=== PATIENT | female | born 1950 | race Caucasian/White ===

== ENCOUNTER 2020-08-23 14:40 | Emergency (ER) | payer OTHER, MEDICARE, SELFPAY ==
[2020-08-23] VITALS (38 sets, daily range): BP systolic 98–146; BP diastolic 47–88; PULSE 70–110; RESP 12–25; TEMP 36.8; O2SAT 93–100
--- NOTE | ~2020-08-23 | CT_ITS ---
EXAMINATION: CT LE LT wo con DATE: 08/23/2020 17:25 INDICATION: Left knee pain TECHNIQUE: Computed tomography (CT) of the left lower extremity was performed without intravenous con trast. The dose-length product was 2014.48 mGy-cm. Automated exposure control and iterative reconstru ction technique were employed. COMPARISON: None FINDINGS: There is a nondisplaced fracture of the left lateral tibial plateau, best seen on axial simona ges. There is a large amount of prepatellar soft tissue swelling. There is abnormal soft tissue/fluid in the anterior soft tissues at the level of the knee, likely hematoma. Moderate osteoarthritis of t he left hip. There are extensive postsurgical changes in the foot and ankle. There is moderate osteoa rthritis of the left knee. IMPRESSION: 1. Nondisplaced left lateral tibial plateau fracture. Irregular soft tissue/fluid anterior to the lef t knee extending inferiorly, likely hematoma. Reviewed, dictated and finalized at location A. IMPRESSION: 1. Nondisplaced left lateral tibial plateau fracture. Irregular soft tissue/flu id anterior to the left knee extending inferiorly, likely hematoma.
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
--- NOTE | 2020-08-23 15:22 | PC.NURSE ---
patient up to [facility] shortly after arrival to ED. patient became dizzy and lethargic. near syncopal episode. no changes on monitor. BP stable. this RN and Elias RN at bedside. symptoms lasted approximately 3-4 minuts. placed gait belt on patient and assist x 3 back to bed. denies previous hx of syncope or near syncope.
--- NOTE | 2020-08-23 15:30 | PC.NURSE ---
patient back on stretcher. on monitor worker. SL inserted. labs drawn. patient back to baseline at this time. aware.
[2020-08-23 16:01] LABS: Basophils Absolute Auto 0.1 K/mm3 (0.0-0.1); Basophils Percent Auto 0.6 % (0.2-1.2); Eosinophils Absolute Auto 0.2 K/mm3 (0-0.3); Eosinophils Percent Auto 1.4 % (0-4.4); Immature Granulocyte Absolute 0.06 K/mm3 (0.00-0.031); Immature Granulocyte Percent A 0.5 % (0-0.5); Lymphocytes Absolute Auto 2.55 K/mm3 (0.9-3.2); Lymphocytes Percent Auto 21.1 % (18.3-44.2); Mean Corpuscular HGB Conc 30.3 g/dl (32-36); Mean Corpuscular Hemoglobin 29.1 pg (26-34); Mean Corpuscular Volume 95.9 fl (80-100); Mean Platelet Volume 10.5 fl (7.4-10.4); Monocytes Percent Auto 8.5 % (2.6-8.5); Neutrophils Absolute Auto 8.2 K/mm3 (1.3-6.7); Neutrophils Percent Auto 67.9 % (45.5-73.1); Platelet Count Result 301 k/mm3 (150-375); Red Blood Count 3.44 M/mm3 (4.2-5.4); Red Cell Distribution Width 13.8 % (11.5-14.5); White Blood Count 12.1 K/mm3 (4.5-10.0)
[2020-08-23 16:10] LABS: INR 1.2; Prothrombin Time 14.8 Seconds (11.1-14.7)
[2020-08-23 16:11] LABS: Partial Thromboplastin Time 28.6 SECONDS (22.3-36.8)
[2020-08-23 16:13] LABS: Alanine Aminotransferase 44 U/L (4-35); Albumin Level 3.6 g/dL (3.5-5.1); Alkaline Phosphatase 128 U/L (38-126); Anion Gap 9 mmol/L (8-16); Aspartate Amino Transferase 74 U/L (14-36); Bilirubin,Total 0.3 mg/dL (0.2-1.3); Blood Urea Nitrogen 22 mg/dL (7-17); Calcium 8.2 mg/dL (8.4-10.2); Carbon Dioxide 23 mmol/L (22-30); Chloride 108 mmol/L (98-107); Estimated CRCL calculation 69 ml/min; Estimated Glomerular Filt Rate 55; Glucose 169 mg/dL (65-105); Potassium 3.2 mmol/L (3.4-5.0); Sodium 140 mmol/L (137-145)
[2020-08-23] MEDS: MORPHINE SULFATE (*CRX) 2 MG/ML INJ IV PUSH (16:14)
[2020-08-23] MEDS: ONDANSETRON INJ 4 MG/2 ML VIAL IV PUSH (16:14)
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
--- NOTE | 2020-08-23 16:30 | PC.NURSE ---
patient on stretcher. side rails up x 2. on satellite project site monitor. pain meds and zofran given as ordered. repositioned in bed. denies any other needs at this time. sister in room. call light in reach.
--- NOTE | 2020-08-23 18:55 | PC.NURSE ---
attempted to get patient up to [facility] to collect UA. plan to discharge patient home at this time. patient became diaphoretic and dizzy again. no LOC. patient laid back down and repositioned. provider notified.
--- NOTE | 2020-08-23 19:05 | PC.NURSE ---
attempted to straight cath patient. unable to complete by this RN due to difficult anatomy. Elias RN to bedside to attempt with new catheter kit. unable to complete. patient cleaned and placed on bedpan. c/o dizziness again with slight movement.
[2020-08-23] MEDS: POTASSIUM CHLORIDE 20 MEQ TABLET 40 MEQ PO (19:25)
--- NOTE | 2020-08-23 20:13 | ECG_ITS ---
Measurements Intervals [place] Rate: 70 P: 60 ID: 149 QRS: -8 QRSD: 115 T: 58 QT: 430 QTc: 464 Interpretive Statements SINUS RHYTHM INTRAVENTRICULAR CONDUCTION DELAY DELAYED PRECORDIAL R/S TRANSITION LEFT VENTRICULAR HYPERTROPHY WITH ST-T CHANGE BORDERLINE ECG Electronically Signed On 08-24-2020 6:59:57 CDT by Otto Kaiser D.O.
[2020-08-23] MEDS: SODIUM CHLORIDE 0.9% IV 1,000 ML 999 ML IV CONT (20:26)
[2020-08-23 20:33] LABS: Add Urine Microscopic? YES; Appearance Urine Turbid (Clear); Bacteria Urine 2+ /hpf; Bilirubin Urine Negative (Negative); Blood Urine 2+ (Negative); Color Urine Yellow (Yellow); Glucose Urine UA Negative (Negative); Ketones Urine Negative (Negative); Leukocyte Esterase Ur 3+ LEU/UL (Negative); Nitrate Urine Negative (Negative); Protein Urine 2+ mg/dL (Negative); Urobilinogen Urine Negative mg/dL (<2.0); WBC Urine >75 /hpf
[2020-08-23 20:34] LABS: Specific Grav Ur 1.043 (1.001-1.035)
--- NOTE | 2020-08-23 21:14 | PC.NURSE ---
EKG done at bedside. in room. patient wants pain meds. provider aware. sandwich tray given to patient and with soda.
[2020-08-23] MEDS: HYDROcodone/acetaminophen (*CRX) 5-325 MG TABLET 1 TAB PO (22:10)
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
--- NOTE | 2020-08-23 22:26 | PC.NURSE ---
resting on stretcher. at bedside. IV antibiotic completed. NS continues but slow due to patient movement. states she is worried about pain meds prior to ambulance ride. will discuss with .
--- NOTE | 2020-08-23 22:29 | PC.NURSE ---
Addendum entered by Francheska Severino RN 08/23/20 22:30: [phone] ext [phone] Original Note: Magui TAVARES needs update when patient leaves this ED or when we are aware that EMS is able to transport. return #[phone]
--- NOTE | 2020-08-23 22:32 | PC.NURSE ---
called [facility] and [facility] to trasfer patient to [facility] ed waiting on both to return calls on whether they can transfer or not
--- NOTE | 2020-08-23 22:48 | PC.NURSE ---
[facility] declined due to a shortage of rigs. called [facility] to touch base and they still have not recieved an email back from their clothing room supervisor
[2020-08-24] VITALS (12 sets, daily range): BP systolic 113–140; BP diastolic 35–88; PULSE 70–75; RESP 16–21; TEMP 36.8; O2SAT 93–99
--- NOTE | 2020-08-24 00:10 | PC.NURSE ---
Patient placed in hospital bed for comfort.
[2020-08-24] MEDS: MORPHINE SULFATE (*CRX) 2 MG/ML INJ IV PUSH ×2 (01:07→05:43)
--- NOTE | 2020-08-24 01:39 | PC.NURSE ---
contacted [facility] about transferring patient. waiting on a call back. [facility] still has not called. when contacted at [phone] i was told that they would call me when they got the email from their show design supervisor and they will call me when they here something
--- NOTE | 2020-08-24 02:04 | PC.NURSE ---
Addendum entered by Becky Cunningham 08/24/20 02:05: contacted [facility] and cancelled request for transportation Original Note: [facility] accepted transfer eta will be 0800
[2020-08-24] MEDS: HYDROcodone/acetaminophen (*CRX) 5-325 MG TABLET 1 TAB PO (02:23)
--- NOTE | 2020-08-24 06:34 | PC.NURSE ---
Patient placed on 2L via nasal cannula. Patient's O2 began to range from 86%-90% while sleeping. Patient on oxygen while sleeping.
--- NOTE | 2020-08-24 07:15 | PC.NURSE ---
Report received from ANUSHA Sanders, to continue care. Pt resting comfortably on stretcher. Denies needs at present.
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
== END 2020-08-24 08:51 | disposition short-term general hospital (02) ==
PROVIDERS: Emergency Medicine; Physician Assistant; Emergency Provider Emergency Medicine
DX: S82.145A Nondisplaced bicondylar fracture of left tibia, initial encounter for closed fracture (principal); S20.212A Contusion of left front wall of thorax, initial encounter; N39.0 Urinary tract infection, site not specified; E87.6 Hypokalemia; R55 Syncope and collapse; N13.30 Unspecified hydronephrosis; E11.9 Type 2 diabetes mellitus without complications; K21.9 Gastro-esophageal reflux disease without esophagitis; E78.5 Hyperlipidemia, unspecified; I10 Essential (primary) hypertension; Z86.711 Personal history of pulmonary embolism; Z79.01 Long term (current) use of anticoagulants; Z79.4 Long term (current) use of insulin; I45.9 Conduction disorder, unspecified; R94.31 Abnormal electrocardiogram [ECG] [EKG]
CPT/HCPCS: 36415; 71260; 73700; 74177; 80053; 81001; 85025; 85610; 85730; 87077; 87086; 87088; 87186; 93005; 96361; 96365; 96366; 96367; 96375; 96376; 99285; A9270; J0131; J0696; J2270; J2405; J7030; Q9967

== ENCOUNTER 2023-01-08 12:10 | Outpatient (CLI) | payer MEDICARE, SELFPAY ==
[2023-01-08 12:36] LABS: Basophils Absolute Auto 0.04 K/mm3 (0.00-0.10); Basophils Percent Auto 0.5 % (0.0-1.0); Eosinophils Absolute Auto 0.09 K/mm3 (0.02-0.50); Eosinophils Percent Auto 1.2 % (1.0-6.0); Hematocrit 37.6 % (35.0-42.0); Hemoglobin 11.5 g/dL (11.7-13.8); Immature Granulocyte Absolute 0.02 K/mm3 (0.00-0.00); Immature Granulocyte Percent A 0.3 % (0.0-0.0); Lymphocytes Absolute Auto 0.86 K/mm3 (1.10-4.50); Lymphocytes Percent Auto 11.5 % (18.0-42.0); Mean Corpuscular HGB Conc 30.6 g/dL (32.0-36.0); Mean Corpuscular Hemoglobin 29.3 pg (27.0-31.0); Mean Corpuscular Volume 95.9 fL (78.0-102.0); Mean Platelet Volume 10.3 fl (9.2-11.8); Monocytes Absolute Auto 0.79 K/mm3 (0.10-0.90); Monocytes Percent Auto 10.5 % (2.0-11.0); Neutrophils Absolute Auto 5.7 K/mm3 (1.7-7.2); Platelet Count Result 298 K/mm3 (150-420); Red Blood Count 3.92 M/mm3 (4.20-5.40); Red Cell Distribution Width 17.8 % (11.6-14.4); White Blood Count 7.5 K/mm3 (4.8-10.8)
[2023-01-08 12:59] LABS: Alanine Aminotransferase 67 U/L (14-59); Albumin Level 2.3 g/dL (3.4-5.0); Alkaline Phosphatase 282 U/L (46-116); Anion Gap 6 mmol/L (8-16); Aspartate Amino Transferase 121 U/L (15-37); Bilirubin,Total 1.1 mg/dL (0.00-1.00); Blood Urea Nitrogen 46 mg/dL (7-18); Calcium 8.8 mg/dL (8.5-10.1); Carbon Dioxide 33 mmol/L (21-32); Chloride 100 mmol/L (98-108); Estimated Glomerular Filt Rate 27; Glucose 102 mg/dL (70-99); Osmolality Calculated 299 mOsm/kg (285-295); Potassium 4.1 mmol/L (3.5-5.1); Sodium 139 mmol/L (136-145); Thyroid Stimulating Hormone 13.47 uIU/mL (0.36-3.74); Total Protein 9.2 g/dL (6.4-8.2)
[2023-01-08 13:08] VITALS: BP 153/68; PULSE 64; RESP 16; TEMP 36.4; O2SAT 98
[2023-01-08 13:14] VITALS: BMI 48.3
--- NOTE | 2023-01-08 14:25 | PC.NURSE ---
Patient here for cycle 1 chemo Keytruda infusion. Education given. All concerns answered. Labs reviewed and ok'd. IV Keytruda administered. SEE MAR. Tolerated well. Will return in 6 weeks February 19, 2023 for cycle 2. Safe exit of hospital in her motorized scooter escorted by friend.
[2023-01-14 05:47] LABS: Cortisol Random 15.7 mcg/dL (***)
== END 2023-01-08 12:11 | disposition home or self-care (01) ==
PROVIDERS: Visit Provider Internal Medicine Hematology & Oncology
DX: C67.9 Malignant neoplasm of bladder, unspecified (principal); R94.6 Abnormal results of thyroid function studies
CPT/HCPCS: 36415; 80053; 82533; 84443; 85025; 96413; J9271

== ENCOUNTER 2023-02-19 12:21 | Outpatient (CLI) | payer MEDICARE, SELFPAY ==
--- NOTE | 2023-02-19 12:25 | PC.NURSE ---
Pt to room 202 per wc with friend. A&Ox3. Has no complaints or concerns. Oriented to room, plan of care. Requests to remain up in wc. Call ayers in reach. Reminded to call with needs.
[2023-02-19 12:56] LABS: Basophils Absolute Auto 0.05 K/mm3 (0.00-0.10); Basophils Percent Auto 0.7 % (0.0-1.0); Eosinophils Absolute Auto 0.11 K/mm3 (0.02-0.50); Eosinophils Percent Auto 1.5 % (1.0-6.0); Hematocrit 37.6 % (35.0-42.0); Hemoglobin 11.9 g/dL (11.7-13.8); Immature Granulocyte Absolute 0.03 K/mm3 (0.00-0.00); Immature Granulocyte Percent A 0.4 % (0.0-0.0); Lymphocytes Absolute Auto 0.81 K/mm3 (1.10-4.50); Lymphocytes Percent Auto 10.9 % (18.0-42.0); Mean Corpuscular HGB Conc 31.6 g/dL (32.0-36.0); Mean Corpuscular Hemoglobin 30.7 pg (27.0-31.0); Mean Corpuscular Volume 97.2 fL (78.0-102.0); Mean Platelet Volume 10.2 fl (9.2-11.8); Monocytes Absolute Auto 0.75 K/mm3 (0.10-0.90); Monocytes Percent Auto 10.1 % (2.0-11.0); Neutrophils Absolute Auto 5.7 K/mm3 (1.7-7.2); Neutrophils Percent Auto 76.4 % (50.0-70.0); Platelet Count Result 296 K/mm3 (150-420); Red Blood Count 3.87 M/mm3 (4.20-5.40); Red Cell Distribution Width 15.1 % (11.6-14.4); White Blood Count 7.4 K/mm3 (4.8-10.8)
[2023-02-19 13:19] LABS: Alanine Aminotransferase 56 U/L (14-59); Albumin Level 2.1 g/dL (3.4-5.0); Alkaline Phosphatase 281 U/L (46-116); Anion Gap 7 mmol/L (8-16); Aspartate Amino Transferase 114 U/L (15-37); Bilirubin,Total 0.9 mg/dL (0.00-1.00); Blood Urea Nitrogen 69 mg/dL (7-18); Calcium 8.4 mg/dL (8.5-10.1); Carbon Dioxide 29 mmol/L (21-32); Chloride 97 mmol/L (98-108); Estimated Glomerular Filt Rate 13; Glucose 199 mg/dL (70-99); Osmolality Calculated 302 mOsm/kg (285-295); Potassium 4.5 mmol/L (3.5-5.1); Sodium 133 mmol/L (136-145); Total Protein 8.9 g/dL (6.4-8.2)
--- NOTE | 2023-02-19 13:20 | PC.NURSE ---
Labs resulted. Creatnine 3.36. Zahraa at Dr. Paniagua's office notified. Ordered to hold Keytruda for one week and administer 5ooml NS. Pt informed. Has no concerns.
[2023-02-19 13:50] VITALS: BMI 47.0
[2023-02-19] MEDS: SODIUM CHLORIDE 0.9% IV 500 ML IVPB (13:57)
[2023-02-19 13:59] VITALS: BP 130/58; PULSE 60; RESP 20; TEMP 36; O2SAT 95
--- NOTE | 2023-02-19 14:00 | PC.NURSE ---
Labs resulted. Creatnine 3.36. Zahraa at Dr
--- NOTE | 2023-02-19 14:38 | PC.NURSE ---
Zahraa from Dr. Paniagua's office called and stated Dr. Paniagua would like patient to go the the ED after bolus completed for a full work up and kidney ultrasound. Discussed with patient and she is in agreement.
--- NOTE | 2023-02-19 14:50 | PC.NURSE ---
Pt has changed her mind and does not want to go to the ED when bolus is infused. Dr. Paniagua's office notified. Pt to return for labs and possible Keytruda infusion next week.
--- NOTE | 2023-02-19 15:02 | PC.NURSE ---
NS bolus infused. Pt tolerated well. Has no concerns or complaints. Discharged to home per wc with friend.
[2023-02-25 03:50] LABS: Cortisol Random 15.9 mcg/dL (***)
== END 2023-02-19 12:22 | disposition home or self-care (01) ==
LOC: CHSTREATRM 12:27
PROVIDERS: Visit Provider Internal Medicine Hematology & Oncology
DX: C67.9 Malignant neoplasm of bladder, unspecified (principal); R79.89 Other specified abnormal findings of blood chemistry; R94.6 Abnormal results of thyroid function studies
CPT/HCPCS: 36415; 80053; 82533; 84443; 85025; 96360; J7040

== ENCOUNTER 2023-02-23 07:28 | Outpatient (CLI) | payer MEDICARE, SELFPAY ==
--- NOTE | ~2023-02-23 | US_ITS ---
Renal-Bladder ultrasound Clinical History: Elevated creatinine Technique: Real-time sonographic imaging of the kidneys and urinary bladder was performed. Findings: The right kidney measures 8.9 cm in length and the left kidney measures 11.6 cm. There is n o hydronephrosis or renal calculus identified. Renal cortical echogenicity is within normal limits. N o renal mass lesion is identified. The urinary bladder is collapsed, limiting evaluation. Impression: No hydronephrosis. Left kidney measures significantly larger than right, possibly due to limitations in imaging. Conside r asymmetric right renal atrophy. Collapsed urinary bladder limits evaluation. Reviewed, dictated and finalized at location . Impression: No hydronephrosis. Left kidney measures significantly larger than right, possibly due to limitatio ns in imaging. Consider asymmetric right renal atrophy. Collapsed urinary bladder limits evaluation.
== END 2023-02-23 07:29 | disposition home or self-care (01) ==
LOC: CHSIMG 07:31
PROVIDERS: Visit Provider Internal Medicine Hematology & Oncology
DX: R79.89 Other specified abnormal findings of blood chemistry (principal)
CPT/HCPCS: 76775

== ENCOUNTER 2023-02-26 13:13 | Outpatient (CLI) | payer MEDICARE, SELFPAY ==
[2023-02-26 13:18] VITALS: BMI 47.0
[2023-02-26 13:32] LABS: Basophils Absolute Auto 0.04 K/mm3 (0.00-0.10); Basophils Percent Auto 0.6 % (0.0-1.0); Eosinophils Absolute Auto 0.13 K/mm3 (0.02-0.50); Eosinophils Percent Auto 2.1 % (1.0-6.0); Hematocrit 36.4 % (35.0-42.0); Hemoglobin 11.6 g/dL (11.7-13.8); Immature Granulocyte Absolute 0.04 K/mm3 (0.00-0.00); Immature Granulocyte Percent A 0.6 % (0.0-0.0); Lymphocytes Absolute Auto 0.85 K/mm3 (1.10-4.50); Lymphocytes Percent Auto 13.8 % (18.0-42.0); Mean Corpuscular HGB Conc 31.9 g/dL (32.0-36.0); Mean Corpuscular Hemoglobin 30.9 pg (27.0-31.0); Mean Corpuscular Volume 97.1 fL (78.0-102.0); Mean Platelet Volume 10.5 fl (9.2-11.8); Monocytes Absolute Auto 0.77 K/mm3 (0.10-0.90); Monocytes Percent Auto 12.5 % (2.0-11.0); Neutrophils Absolute Auto 4.4 K/mm3 (1.7-7.2); Neutrophils Percent Auto 70.4 % (50.0-70.0); Platelet Count Result 268 K/mm3 (150-420); Red Blood Count 3.75 M/mm3 (4.20-5.40); White Blood Count 6.2 K/mm3 (4.8-10.8)
[2023-02-26 13:34] VITALS: BP 109/67; PULSE 88; RESP 16; TEMP 36.8; O2SAT 97
[2023-02-26 14:01] LABS: Alanine Aminotransferase 57 U/L (14-59); Albumin Level 2.2 g/dL (3.4-5.0); Alkaline Phosphatase 256 U/L (46-116); Anion Gap 10 mmol/L (8-16); Aspartate Amino Transferase 105 U/L (15-37); Bilirubin,Total 0.9 mg/dL (0.00-1.00); Blood Urea Nitrogen 63 mg/dL (7-18); Calcium 8.1 mg/dL (8.5-10.1); Carbon Dioxide 27 mmol/L (21-32); Chloride 99 mmol/L (98-108); Estimated CRCL calculation 22 ml/min; Estimated Glomerular Filt Rate 15; Glucose 227 mg/dL (70-99); Osmolality Calculated 307 mOsm/kg (285-295); Potassium 4.6 mmol/L (3.5-5.1); Sodium 136 mmol/L (136-145); Thyroid Stimulating Hormone 9.51 uIU/mL (0.36-3.74); Total Protein 8.1 g/dL (6.4-8.2)
--- NOTE | 2023-02-26 14:17 | PC.NURSE ---
Patient here for IV chemo Keytruda infusion. Labs drawn and reviewed. Creatinine 3.03. Dr. Paniagua notified. New orders received to hold chemo this week and repeat labs next week. Patient frustrated, but very understanding. Support given. Safe exit of hospital in [facility] along with sister.Will return Monday March 06, 2023 at 1230.
[2023-03-02 14:11] LABS: Cortisol Random 14.5 mcg/dL (***)
== END 2023-02-26 13:14 | disposition home or self-care (01) ==
LOC: CHSTREATRM 13:17
PROVIDERS: Visit Provider Internal Medicine Hematology & Oncology
DX: C67.9 Malignant neoplasm of bladder, unspecified (principal); R94.6 Abnormal results of thyroid function studies; R79.89 Other specified abnormal findings of blood chemistry
CPT/HCPCS: 36415; 80053; 82533; 84443; 85025

== ENCOUNTER 2023-03-06 12:15 | Outpatient (CLI) | payer MEDICARE, SELFPAY ==
[2023-03-06 12:30] LABS: Basophils Absolute Auto 0.05 K/mm3 (0.00-0.10); Basophils Percent Auto 0.7 % (0.0-1.0); Eosinophils Absolute Auto 0.14 K/mm3 (0.02-0.50); Eosinophils Percent Auto 2.1 % (1.0-6.0); Hematocrit 36.9 % (35.0-42.0); Hemoglobin 11.7 g/dL (11.7-13.8); Immature Granulocyte Absolute 0.01 K/mm3 (0.00-0.00); Immature Granulocyte Percent A 0.1 % (0.0-0.0); Lymphocytes Absolute Auto 0.93 K/mm3 (1.10-4.50); Lymphocytes Percent Auto 13.7 % (18.0-42.0); Mean Corpuscular HGB Conc 31.7 g/dL (32.0-36.0); Mean Corpuscular Hemoglobin 31.3 pg (27.0-31.0); Mean Corpuscular Volume 98.7 fL (78.0-102.0); Mean Platelet Volume 10.2 fl (9.2-11.8); Monocytes Absolute Auto 0.73 K/mm3 (0.10-0.90); Monocytes Percent Auto 10.8 % (2.0-11.0); Neutrophils Absolute Auto 4.9 K/mm3 (1.7-7.2); Neutrophils Percent Auto 72.6 % (50.0-70.0); Platelet Count Result 258 K/mm3 (150-420); Red Blood Count 3.74 M/mm3 (4.20-5.40); Red Cell Distribution Width 14.6 % (11.6-14.4); White Blood Count 6.8 K/mm3 (4.8-10.8)
[2023-03-06 12:57] LABS: Alanine Aminotransferase 41 U/L (14-59); Albumin Level 2.2 g/dL (3.4-5.0); Alkaline Phosphatase 261 U/L (46-116); Anion Gap 6 mmol/L (8-16); Aspartate Amino Transferase 88 U/L (15-37); Bilirubin,Total 0.9 mg/dL (0.00-1.00); Blood Urea Nitrogen 50 mg/dL (7-18); Calcium 8.8 mg/dL (8.5-10.1); Carbon Dioxide 29 mmol/L (21-32); Chloride 100 mmol/L (98-108); Estimated Glomerular Filt Rate 17; Glucose 171 mg/dL (70-99); Osmolality Calculated 297 mOsm/kg (285-295); Potassium 4.9 mmol/L (3.5-5.1); Sodium 135 mmol/L (136-145); Thyroid Stimulating Hormone 14.06 uIU/mL (0.36-3.74)
--- NOTE | 2023-03-06 13:50 | PC.NURSE ---
Patient here for Keytruda #2. Has not been able to get dose for last 2 weeks r/t ^ Creatinine level. Yet today Creatinine 2.76 - notified Dr. Paniagua. Per Dr. Paniagua unable to give today. Repeat blood work next week. Patient educated on today's event. DC per wc with sister.
[2023-03-11 13:58] LABS: Cortisol Random 14.6 mcg/dL (***)
== END 2023-03-06 12:16 | disposition home or self-care (01) ==
LOC: CHSTREATRM 12:16
PROVIDERS: Visit Provider Internal Medicine Hematology & Oncology
DX: C67.9 Malignant neoplasm of bladder, unspecified (principal); R79.89 Other specified abnormal findings of blood chemistry; R94.6 Abnormal results of thyroid function studies
CPT/HCPCS: 36415; 80053; 82533; 84443; 85025; J9271

== ENCOUNTER 2023-03-13 12:25 | Outpatient (CLI) | payer MEDICARE, SELFPAY ==
[2023-03-13 12:40] VITALS: BP 111/51; PULSE 78; RESP 14; TEMP 36.6; O2SAT 98
[2023-03-13 12:41] VITALS: BMI 46.9
--- NOTE | 2023-03-13 13:26 | PC.NURSE ---
Patient here for Natalie #2. Labs reviewed from 03/11/23 and ok'd for chemo. Education given. IV Chemo administered. SEE MAR Tolerated well. Will return 04/24/23 at 1230 for #3. Safe exit of hospital per motor scooter chair and sister.
== END 2023-03-13 12:26 | disposition home or self-care (01) ==
LOC: CHSTREATRM 12:28
PROVIDERS: Visit Provider Internal Medicine Hematology & Oncology
DX: Z51.11 Encounter for antineoplastic chemotherapy (principal); C67.9 Malignant neoplasm of bladder, unspecified
CPT/HCPCS: 96413; J9271

== ENCOUNTER 2023-04-24 11:59 | Outpatient (CLI) | payer MEDICARE, SELFPAY ==
[2023-04-24 12:06] VITALS: BMI 46.9
[2023-04-24 12:09] VITALS: BP 140/63; PULSE 64; RESP 14; TEMP 36.4; O2SAT 96
== END 2023-04-24 12:00 | disposition home or self-care (01) ==
PROVIDERS: PCP Internal Medicine Hematology & Oncology; Visit Provider Internal Medicine Hematology & Oncology
DX: Z51.11 Encounter for antineoplastic chemotherapy (principal); C67.9 Malignant neoplasm of bladder, unspecified
CPT/HCPCS: 96413; J9271

== ENCOUNTER 2023-06-05 11:50 | Outpatient (CLI) | payer MEDICARE, SELFPAY ==
[2023-06-05 12:02] VITALS: BMI 47.0
[2023-06-05 12:07] VITALS: BP 154/56; PULSE 72; RESP 16; TEMP 36.6; O2SAT 97
[2023-06-05 13:17] VITALS: BP 149/69; PULSE 72; RESP 16; O2SAT 98
--- NOTE | 2023-06-05 13:19 | PC.NURSE ---
Patient here for #4 Keytruda infusion. Labs done at [facility] on Thursday06/01/23. Reviewed and ok. Education given. No concerns. Has appt. Dr. Paniagua after this at the clinic. Keytruda administered. SEE MAR. Tolerated well. Safe exit of hospital per motorized chair and 2 sisters[address] Will see if Dr. Paniagua is going to give more chemo.
== END 2023-06-05 11:51 | disposition home or self-care (01) ==
PROVIDERS: Visit Provider Internal Medicine Hematology & Oncology
DX: Z51.11 Encounter for antineoplastic chemotherapy (principal); C67.9 Malignant neoplasm of bladder, unspecified
CPT/HCPCS: 96413; J9271

== ENCOUNTER 2023-08-06 09:47 | Outpatient (CLI) | payer MEDICARE, SELFPAY ==
[2023-08-06 10:15] VITALS: BP 139/55; PULSE 67; RESP 18; TEMP 35.7; O2SAT 93
[2023-08-06] MEDS: SODIUM CHLORIDE 0.9% IV 250 ML 10 ML IVPB (10:20)
[2023-08-06] MEDS: FAMOTIDINE 20 MG/2 ML VIAL IV PUSH (10:45)
[2023-08-06] MEDS: diphenhydrAMINE HCl INJ 50 MG/ML VIAL 25 MG IV PUSH (10:45)
[2023-08-06] MEDS: FOSAPREPITANT DIMEGLUMINE 150 MG in SODIUM CHLORIDE 0.9% IV 250 ML 750 MG IVPB (10:55)
[2023-08-06] MEDS: HEPARIN SODIUM LOCK FLUSH 500 UNITS/5 ML SYRINGE IV PUSH (11:57)
--- NOTE | 2023-08-06 12:24 | PC.NURSE ---
Patient here for Cycle 1 day 1 of Gemcitabine/Carboplantin chemo. Education and cycle calendar given to patient. All Concerns answered. Labs were done yesterday at [facility]. Reveiwed and ok'd. Chemo regimen administered. SEE MAR. Left message with Dr. Paniagua's office abut ordering anti-nausea medication for hme.Tolerated Well. Safe exit of hospital in her motorized scooter with friend. Will return 08/13/23 at 1000 for cycle 1 day 8.
[2023-08-06 12:25] VITALS: BP 128/56; PULSE 68; RESP 14; O2SAT 94
== END 2023-08-06 09:48 | disposition home or self-care (01) ==
LOC: CHSTREATRM 09:52
PROVIDERS: Visit Provider Internal Medicine Hematology & Oncology
DX: Z51.11 Encounter for antineoplastic chemotherapy (principal); C67.9 Malignant neoplasm of bladder, unspecified
CPT/HCPCS: 96367; 96375; 96413; 96417; J1100; J1200; J1453; J2405; J7050; J9045; J9201